=== PATIENT | female | born 1995 | race Caucasian/White ===

== ENCOUNTER 2024-10-07 09:38 | Outpatient (REF) | payer OTHER, SELFPAY ==
[2024-10-08 11:09] LABS: Chlamydia Result Negative (Negative); GC Result Negative (Negative)
== END 2024-10-07 09:39 | disposition home or self-care (01) ==
LOC: LBN 09:38
PROVIDERS: Visit Provider Physician Assistant
DX: R30.0 Dysuria (principal); Z11.3 Encounter for screening for infections with a predominantly sexual mode of transmission; N39.0 Urinary tract infection, site not specified; N89.8 Other specified noninflammatory disorders of vagina
CPT/HCPCS: 87491; 87591; 87480; 87510; 87660

== ENCOUNTER 2024-10-23 11:22 | Outpatient (REF) | payer OTHER, SELFPAY ==
[2024-10-25 12:20] LABS: Chlamydia Result Negative (Negative); GC Result Negative (Negative)
== END 2024-10-23 11:23 | disposition home or self-care (01) ==
LOC: LBN 11:22
PROVIDERS: Visit Provider Physician Assistant
DX: R30.0 Dysuria (principal); N39.0 Urinary tract infection, site not specified
CPT/HCPCS: 87491; 87591; 87086; 87480; 87510; 87660